=== PATIENT | male | born 1965 | race Caucasian/White ===

== ENCOUNTER 2020-06-11 23:00 | Inpatient (IN) | payer MEDICAID, OTHER ==
[~2020-06-11] VITALS: Ht 182.9 cm; Wt 94.7 kg
[2020-06-12 00:40] LABS: Basophils # (auto) 0.1 10 ^3/uL (0-0.2); Basophils % (auto) 0.9 % (0.0-2.0); Eosinophils # (auto) 0.2 10 ^3/uL (0-0.8); Eosinophils % (auto) 2.1 % (0.0-7.0); Hematocrit 45.3 % (41.0-53.0); Hemoglobin 15.3 g/dL (13.5-17.5); Lymphocytes # (auto) 2.1 10 ^3/uL (0.4-5.4); Lymphocytes % (auto) 22.2 % (10.0-50.0); Mean Corpuscular Hemoglobin 27.4 pg (28.0-32.0); Mean Corpuscular Hgb Conc. 33.7 g/dL (32.0-36.0); Mean Corpuscular Volume 81.2 fL (80.0-100.0); Monocytes # (auto) 0.6 10 ^3/uL (0-1.3); Monocytes % (auto) 6.4 % (0.0-12.0); Neutrophils # (auto) 6.4 10 ^3/uL (1.6-8.6); Neutrophils % (auto) 68.4 % (37.0-80.0); Nucleated Red Blood Cells % 0.2 %; Platelet Count (auto) 307 10^3/uL (140-450); Red Blood Cells 5.58 10^6/uL (4.5-5.90); Red Cell Distribution Width 14.7 % (11.8-14.3); White Blood Cell 9.3 10^3/uL (4.4-10.8)
[2020-06-12 00:55] LABS: Partial Thromboplastin Time 26.8 sec (23.0-31.2)
[2020-06-12 00:57] LABS: Alanine Aminotransferase 38 U/L (16-61); Albumin 4.2 g/dL (3.4-5.0); Anion Gap 6 (5-15); Aspartate Aminotransferase 23 U/L (15-37); BUN/Creatinine Ratio 13.9; Blood Alcohol < 3.0 mg/dL (0-5); Blood Urea Nitrogen 14 mg/dL (7-18); Calcium 8.9 mg/dL (8.5-10.1); Carbon Dioxide 24 mmol/L (21-32); Chloride 108 mmol/L (98-107); GFR African American 99 mL/min; GFR Non-African American 82 mL/min; Glucose 87 mg/dL (74-106); Magnesium 2.3 mg/dL (1.6-2.6); Potassium 3.5 mmol/L (3.5-5.1); Sodium 138 mmol/L (136-145)
[2020-06-12] MEDS ORDERED: ASPirin 325 MG TAB PO ONE (01:00)
[2020-06-12 01:02] LABS: Alkaline Phosphatase 114 U/L (45-117); Bilirubin, Total 0.6 mg/dL (0.2-1.0); Total Protein 7.6 g/dL (6.4-8.2)
[2020-06-12] MEDS ORDERED: MORPHINE SULFATE 4 MG/ML SYR/VIAL IV PRN (03:30)
[2020-06-12] MEDS ORDERED: MORPHINE SULF INJ 2 MG/ML SYRINGE 1ML IV PRN ×2 (03:30→04:15)
[2020-06-12] MEDS ORDERED: DOCUSATE SOD 100 MG CAP PO PRN (03:30)
[2020-06-12] MEDS ORDERED: ACETAMINOPHEN 325 MG TAB PO PRN (03:30)
[2020-06-12] MEDS ORDERED: HYDROcodone-ACET 5/325MG TAB PO PRN (03:30)
[2020-06-12] MEDS ORDERED: ONDANSETRON HCL 4 MG/2 ML VIAL IV PRN (03:30)
[2020-06-12] MEDS ORDERED: NITROGLYCERIN 0.4 MG SL TAB SL PRN ×2 (03:30→04:15)
[2020-06-12 03:57] LABS: Urine Bacteria NONE SEEN /hpf (None Seen); Urine Blood Negative /uL (Negative); Urine Specific Gravity 1.004 (1.001-1.035); Urine WBC <1 /hpf (0 - 3)
[2020-06-12 04:14] LABS: Alcohol, Urine < 3.0 mg/dL (0-10); Amphetamine Screen, Urine NEGATIVE (NEGATIVE); Barbiturate Scree,Urine NEGATIVE (NEGATIVE); Benzodiazephine Screen, Urine NEGATIVE (NEGATIVE); Cannabinoid Screen, Urine NEGATIVE (NEGATIVE); Cocaine Screen, Urine NEGATIVE (NEGATIVE); Opiate Scree,Urine NEGATIVE (NEGATIVE); Phencyclidine Screen, Urine NEGATIVE (NEGATIVE)
[2020-06-12] MEDS ORDERED: hydrALAZINE HCL 20 MG/ML VL IV PRN (04:15)
[2020-06-12] MEDS ORDERED: ATORVASTATIN 20 MG TAB PO ONE (04:15)
[2020-06-12] MEDS ORDERED: ASPirin-EC 81 mg tab PO ONE (04:15)
[2020-06-12] MEDS: MORPHINE SULF INJ 2 MG/ML SYRINGE 1ML IV PRN ×3 (04:48→23:28)
[2020-06-12] MEDS: POTASSIUM CHL 20MEQ/100ML 100 ML IV SCH ×2 (04:48→07:00)
[2020-06-12] MEDS ORDERED: SODIUM CHLOR 0.9% PF (SALINE LOCK) 10ML VIAL/SYR IV SCH (06:00)
[2020-06-12 09:13] VITALS: BP 115/86
[2020-06-12 09:21] LABS: Basophils # (auto) 0.1 10 ^3/uL (0-0.2); Basophils % (auto) 0.8 % (0.0-2.0); Eosinophils # (auto) 0.1 10 ^3/uL (0-0.8); Eosinophils % (auto) 1.6 % (0.0-7.0); Hematocrit 45.4 % (41.0-53.0); Hemoglobin 15.2 g/dL (13.5-17.5); Lymphocytes # (auto) 1.6 10 ^3/uL (0.4-5.4); Lymphocytes % (auto) 21.8 % (10.0-50.0); Mean Corpuscular Hemoglobin 27.5 pg (28.0-32.0); Mean Corpuscular Hgb Conc. 33.5 g/dL (32.0-36.0); Mean Corpuscular Volume 82.2 fL (80.0-100.0); Monocytes # (auto) 0.5 10 ^3/uL (0-1.3); Monocytes % (auto) 6.8 % (0.0-12.0); Platelet Count (auto) 321 10^3/uL (140-450); Red Blood Cells 5.53 10^6/uL (4.5-5.90); Red Cell Distribution Width 14.8 % (11.8-14.3); White Blood Cell 7.2 10^3/uL (4.4-10.8)
[2020-06-12 09:43] LABS: Calcium 9.3 mg/dL (8.5-10.1); Potassium 4.2 mmol/L (3.5-5.1)
[2020-06-12] MEDS ORDERED: ENOXAPARIN SOD 40 MG/0.4 ML SYRINGE SC SCH (10:00)
[2020-06-12] MEDS ORDERED: ZINC SULFATE 220mg CAP or TAB PO SCH (10:00)
[2020-06-12] MEDS ORDERED: MULTIPLE VITAMIN TAB PO SCH (10:00)
[2020-06-12] MEDS ORDERED: FAMOTIDINE 20 MG TAB PO SCH (10:00)
[2020-06-12] MEDS ORDERED: ASCORBIC ACID 500 MG TAB PO SCH (10:00)
[2020-06-12] MEDS: ENOXAPARIN SOD 40 MG/0.4 ML SYRINGE SC SCH (10:06)
[2020-06-12] MEDS: ASPirin-EC 81 mg tab PO SCH (10:06)
[2020-06-12] MEDS ORDERED: METO25TA93 PO (12:49)
[2020-06-12] MEDS ORDERED: HYDR-531 PO (12:49)
[2020-06-12] MEDS ORDERED: GABA300C PO (12:49)
[2020-06-12] MEDS ORDERED: CITA-73 PO (12:49)
[2020-06-12] MEDS ORDERED: ATOR20TA PO (12:49)
[2020-06-12] MEDS ORDERED: DOCU-94 PO (12:49)
[2020-06-12] MEDS ORDERED: KEP500T PO (12:49)
[2020-06-12] MEDS ORDERED: HYDR50TA69 PO (12:49)
[2020-06-12 13:00] VITALS: BP 128/94
[2020-06-12] MEDS ORDERED: hydrOXYzine 25 MG TAB or CAP PO PRN (13:00)
[2020-06-12] MEDS: GABAPENTIN 300 MG CAP PO SCH ×2 (14:04→22:17)
[2020-06-12 17:00] VITALS: BP 143/92
[2020-06-12 21:55] VITALS: BP 124/78
[2020-06-12] MEDS ORDERED: ATORVASTATIN 20 MG TAB PO SCH (22:00)
[2020-06-12] MEDS: DOCUSATE SOD 100 MG CAP PO SCH (22:16)
[2020-06-12] MEDS: ATORVASTATIN 20 MG TAB PO SCH (22:17)
[2020-06-12] MEDS: levETIRAcetam 500 MG TAB PO SCH (22:17)
[2020-06-12] MEDS ORDERED: clonazePAM 0.5 MG TAB PO ONE (22:30)
[2020-06-13 05:20] VITALS: BP 138/71
[2020-06-13] MEDS: GABAPENTIN 300 MG CAP PO SCH ×3 (06:00→22:03)
[2020-06-13 09:00] VITALS: BP 135/92
[2020-06-13] MEDS: levETIRAcetam 500 MG TAB PO SCH ×2 (09:57→22:02)
[2020-06-13] MEDS: ENOXAPARIN SOD 40 MG/0.4 ML SYRINGE SC SCH (09:57)
[2020-06-13] MEDS: DOCUSATE SOD 100 MG CAP PO SCH ×2 (09:57→22:02)
[2020-06-13] MEDS: clonazePAM 0.5 MG TAB PO SCH ×2 (09:57→22:02)
[2020-06-13] MEDS: ASPirin-EC 81 mg tab PO SCH (09:58)
[2020-06-13] MEDS: CITALOPRAM HYDROBR 20 MG TAB PO SCH (09:58)
[2020-06-13] MEDS: METOPROLOL SUCCINATE XL 50 MG TAB PO SCH (09:58)
[2020-06-13] MEDS: HYDROcodone-ACET 10/325MG TAB PO PRN (09:58)
[2020-06-13 12:27] LABS: Basophils # (auto) 0.1 10 ^3/uL (0-0.2); Basophils % (auto) 1.1 % (0.0-2.0); Eosinophils # (auto) 0.2 10 ^3/uL (0-0.8); Eosinophils % (auto) 3.1 % (0.0-7.0); Hemoglobin 15.2 g/dL (13.5-17.5); Lymphocytes # (auto) 1.6 10 ^3/uL (0.4-5.4); Lymphocytes % (auto) 23.3 % (10.0-50.0); Mean Corpuscular Hemoglobin 27.7 pg (28.0-32.0); Mean Corpuscular Hgb Conc. 33.8 g/dL (32.0-36.0); Monocytes # (auto) 0.6 10 ^3/uL (0-1.3); Monocytes % (auto) 8.4 % (0.0-12.0); Neutrophils # (auto) 4.4 10 ^3/uL (1.6-8.6); Neutrophils % (auto) 64.1 % (37.0-80.0); Platelet Count (auto) 303 10^3/uL (140-450); Red Blood Cells 5.49 10^6/uL (4.5-5.90); Red Cell Distribution Width 15.4 % (11.8-14.3); White Blood Cell 6.8 10^3/uL (4.4-10.8)
[2020-06-13 12:47] LABS: Calcium 8.9 mg/dL (8.5-10.1); Potassium 4.2 mmol/L (3.5-5.1)
[2020-06-13 13:00] VITALS: BP 103/80
[2020-06-13] MEDS: MORPHINE SULF INJ 2 MG/ML SYRINGE 1ML IV PRN ×2 (16:00→19:51)
[2020-06-13 17:00] VITALS: BP 130/77
[2020-06-13] MEDS ORDERED: LORazepam 2MG/ML-1ML VIAL IV PRN (20:15)
[2020-06-13] MEDS: ATORVASTATIN 20 MG TAB PO SCH (22:03)
[2020-06-14 05:00] VITALS: BP 111/68
[2020-06-14] MEDS: MORPHINE SULF INJ 2 MG/ML SYRINGE 1ML IV PRN (05:10)
[2020-06-14] MEDS: GABAPENTIN 300 MG CAP PO SCH ×2 (05:26→13:46)
[2020-06-14 06:15] LABS: Basophils # (auto) 0.1 10 ^3/uL (0-0.2); Eosinophils # (auto) 0.3 10 ^3/uL (0-0.8); Eosinophils % (auto) 4.4 % (0.0-7.0); Hematocrit 45.2 % (41.0-53.0); Hemoglobin 14.6 g/dL (13.5-17.5); Lymphocytes # (auto) 2.2 10 ^3/uL (0.4-5.4); Lymphocytes % (auto) 29.9 % (10.0-50.0); Mean Corpuscular Hgb Conc. 32.2 g/dL (32.0-36.0); Mean Corpuscular Volume 83.9 fL (80.0-100.0); Monocytes # (auto) 0.6 10 ^3/uL (0-1.3); Monocytes % (auto) 8.5 % (0.0-12.0); Neutrophils # (auto) 4.1 10 ^3/uL (1.6-8.6); Neutrophils % (auto) 56.2 % (37.0-80.0); Nucleated Red Blood Cells % 0.1 %; Platelet Count (auto) 280 10^3/uL (140-450); Red Blood Cells 5.39 10^6/uL (4.5-5.90); Red Cell Distribution Width 15.2 % (11.8-14.3); White Blood Cell 7.3 10^3/uL (4.4-10.8)
[2020-06-14 06:38] LABS: Potassium 3.9 mmol/L (3.5-5.1)
[2020-06-14 06:43] LABS: BUN/Creatinine Ratio 19.5; Calcium 8.7 mg/dL (8.5-10.1)
[2020-06-14 08:49] VITALS: BP 113/77
[2020-06-14] MEDS: HYDROcodone-ACET 10/325MG TAB PO PRN ×2 (09:01→15:51)
[2020-06-14] MEDS: METOPROLOL SUCCINATE XL 50 MG TAB PO SCH (10:00)
[2020-06-14] MEDS ORDERED: FAMO20TA10 PO (10:19)
[2020-06-14] MEDS ORDERED: KEP500T PO (10:19)
[2020-06-14] MEDS ORDERED: GABA300C PO (10:19)
[2020-06-14] MEDS ORDERED: CITA-73 PO (10:19)
[2020-06-14] MEDS ORDERED: METO25TA93 PO (10:19)
[2020-06-14] MEDS: CITALOPRAM HYDROBR 20 MG TAB PO SCH (10:27)
[2020-06-14] MEDS: ASPirin-EC 81 mg tab PO SCH (10:27)
[2020-06-14] MEDS: DOCUSATE SOD 100 MG CAP PO SCH (10:27)
[2020-06-14] MEDS: levETIRAcetam 500 MG TAB PO SCH (10:28)
[2020-06-14] MEDS: clonazePAM 0.5 MG TAB PO SCH (10:28)
[2020-06-14] MEDS: ENOXAPARIN SOD 40 MG/0.4 ML SYRINGE SC SCH (10:29)
[2020-06-14 11:38] LABS: Folate (Folic Acid) 16.02 ng/mL (5.38-24)
[2020-06-14 13:00] VITALS: BP 104/60
[2020-06-14 14:01] VITALS: BP 104/60
[2020-06-14 17:00] VITALS: BP 103/67
[2020-06-15 06:06] LABS: RPR Non Reactive (Non Reactive)
== END 2020-06-14 18:30 | disposition home or self-care (01) | DRG 47 ==
LOC: EDBD 23:00 → ER 23:00 → TELE 23:01 → TELE-WESTW 06-12 05:40
PROVIDERS: ADMIT Nurse Practitioner Family; ATTEND Hospitalist
DX: G45.9 Transient cerebral ischemic attack, unspecified (principal); G92 Toxic encephalopathy; F32.9 Major depressive disorder, single episode, unspecified; Z20.828 Contact with and (suspected) exposure to other viral communicable diseases; Z82.49 Family history of ischemic heart disease and other diseases of the circulatory system; M19.90 Unspecified osteoarthritis, unspecified site; R26.81 Unsteadiness on feet; R47.81 Slurred speech; Z79.899 Other long term (current) drug therapy
CPT/HCPCS: 36415; 70450; 70551; 71045; 80048; 80053; 80061; 80307; 80320; 81001; 82607; 82746; 83036; 83605; 83735; 84443; 84484; 85025; 85379; 85610; 85730; 86592; 87040; 87426; 92610; 93005; 93306; 95819; 97116; 97163; 97530; G0378; J3480